=== PATIENT | male | born 2005 | race Caucasian/White ===

== ENCOUNTER 2023-09-10 07:19 | Outpatient (CLI) | payer OTHER ==
--- NOTE | 2023-09-10 15:41 | MRI Report ---
PROCEDURE: SHOULDER WO - LT INDICATIONS: SHOULDER PAIN TECHNIQUE: Noncontrast oblique coronal T2 fast spin echo with fat saturation, oblique sagittal T1 spin echo and T2 fast spin echo with fat saturation, axial T1 spin echo and T2 fast spin echo with fat saturation a nd 3-D gradient echo through the shoulder. COMPARISON: None. FINDINGS: Image quality: Excellent. Rotator cuff: The supraspinatus, infraspinatus, and subscapularis tendons appear intact throughout. No rotator cuff muscle atrophy on sagittal images. Bones and bursae: Cystic changes are seen at the posterosuperior humeral head with mild overlying cor tical irregularity that may be secondary to chronic rotator cuff tendon traction versus a small shall ow chronic Hill-Sachs lesion. No acute trabecular bone injury. Glenohumeral cartilages are intact. Th e acromioclavicular joint degenerative changes. Trace fluid is seen in the subacromial/subdeltoid bur sa. There is a paucity of glenohumeral joint fluid. Possible 0.6 cm loose body in the superior subsca pularis recess. Capsule and soft tissues: Suspected nondisplaced tearing of the anteroinferior labrum versus mildly p rominent chondrolabral junction. Proximal biceps long head tendon is intact. There is effacement of t he normal fat signal in the rotator interval. The middle glenohumeral ligament and anterior band infe rior glenohumeral ligament appear mildly thickened. IMPRESSION: 1.Cystic changes and cortical irregularity at the posterosuperior humeral head could represent a antisqueak chalker li shallow Hill-Sachs lesion if there has been a history of anterior instability. 2.Suspected nondisplaced tearing of the anteroinferior labrum. 3.Filling defect measuring 6 mm at the superior subscapularis recess is suspicious for an intra-artic ular loose body versus focal synovial hypertrophy. 4.Partial effacement of the rotator interval fat and mild thickening of the middle and inferior gleno humeral ligaments are nonspecific, but can be seen in the setting of the clinical syndrome of adhesiv e capsulitis. Reviewed by: Marbin Steve MD on 09/10/2023 3:40 PM PDT Approved by: Marbin Steve MD on 09/10/2023 3:40 PM PDT Station ID: [id number]
== END 2023-09-10 07:20 | disposition home or self-care (01) ==
LOC: DI 07:19
PROVIDERS: ATTEND Physician Assistant
DX: M85.612 Other cyst of bone, left shoulder (principal); M25.512 Pain in left shoulder; M25.312 Other instability, left shoulder

== ENCOUNTER 2024-01-26 20:34 | Emergency (ER) | payer OTHER ==
[2024-01-26 20:41] VITALS: BP 128/72; O2SAT 100
--- NOTE | 2024-01-26 20:53 | ED Physician Documentation ---
History of Present Illness - Stated complaint Stated Complaint: - Chief complaint Chief Complaint: General - History obtained from History obtained from: Patient - Additonal information Additional information: He had rectal pain for about 2 weeks with so a very small amount of hematochezia on the paper. Hurts to have a bowel movement especially. Seen in the walk-in clinic a week ago and diagnosed with hemorrhoids. He was told they were internal hemorrhoids. Despite the fact that they hurt. And was given suppositories without relief. PD PAST MEDICAL HISTORY - Past Medical History Past Medical History: No Cardiovascular: None Respiratory: None Neuro: None Endocrine/Autoimmune: None GI: None : None HEENT: None Psych: None Musculoskeletal: None Derm: None - Past Surgical History Past Surgical History: Yes - Present Medications Home Medications: Ambulatory Orders Medication Instructions Recorded Confirmed Docusate Sodium 100Mg Capsule 100 mg PO BID #60 cap 01/26/24 [Colace 100Mg Capsule] Nitroglycerin [Rectiv] 1 appful RC BID 28 Days gm 01/26/24 - Allergies Allergies/Adverse Reactions: Allergies Allergy/AdvReac Type Severity Reaction Status Date / Time No Known Drug Allergies Allergy Verified 01/26/24 20:37 - Social History Does the pt smoke?: No Smoking Status: Never smoker Does the pt drink ETOH?: No Does the pt have substance abuse?: No - Immunizations Immunizations are current?: Yes - POLST Patient has POLST: No PD ED PE NORMAL - Vitals Vital signs reviewed: Yes - General General: Alert and oriented X 3, No acute distress - Rectal Rectal: Other (There is no external hemorrhoid. No gross blood. He does have a fissure at 6:00 which is tender. No feel of abscess or swelling anywhere.) - Neuro Neuro: Alert and oriented X 3, Normal speech Results - Vitals Vitals: Vital Signs - 24 hr 01/26/24 20:37 Temperature 36.8 C Heart Rate 60 Respiratory 16 Rate Blood Pressure 128/72 O2 Saturation 100 Oxygen O2 Source Room air Departure - Departure Disposition: 01 Home, Self Care Clinical Impression: Rectal fissure Condition: Good Record reviewed to determine appropriate education?: Yes Instructions: Sitz Bath, ED Fissure Anal Ch Follow-Up: [facility] [Provider Group] Prescriptions: Docusate Sodium 100Mg Capsule [Colace 100Mg Capsule] 100 mg PO BID #60 cap Nitroglycerin [Rectiv] 1 appful RC BID 28 Days gm Comments: You were seen today for a rectal fissure. This is a painful phenomenon where there is a little tear in the sphincter of the rectum. I see no external hemorrhoid, and as discussed, the previous diagnosis of internal hemorrhoids would not make much sense, as internal hemorrhoids do not hurt. Followup with the surgeon if not improving in a week or so. Plenty of liquids and fiber.
[2024-01-26] MEDS: MAGNESIUM CITRATE 296 ML BOTTLE PO STA (20:59)
[2024-01-26] MEDS: HYDROcod/ACET 5/325 Prepack 4 PO STA (21:00)
== END 2024-01-26 21:00 | disposition home or self-care (01) ==
LOC: ED 20:34
DX: K60.2 Anal fissure, unspecified (principal)
CPT/HCPCS: 99282; 99283; A9270